=== PATIENT | female | born 1980 | race Caucasian/White ===

== ENCOUNTER 2017-09-23 12:35 | Emergency (ER) | payer OTHER ==
--- NOTE | 2017-09-23 13:09 | ED Physician Documentation ---
PD HPI ABD PAIN - Stated complaint Stated Complaint: ABD PX - Chief complaint Chief Complaint: Abd Pain - History obtained from History obtained from: Patient - History of Present Illness Timing - onset: Other (She has sharp LUQ/epigastric pain since yesterday. Bloated x4 weeks, intermittent but usually daily. Appx 3 yrs ago dx umbilical hernia and dx diastasis rectus. +normal BMS. 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 Review of Systems Ten Systems: 10 systems reviewed and negative Constitutional: reports: Fatigue ("not as bad as mono- I think just because I have 4 kids."). denies: Fever, Chills Nose: denies: Rhinorrhea / runny nose, Congestion Cardiac: denies: Chest pain / pressure, Palpitations Respiratory: denies: Dyspnea, Cough GI: reports: Abdominal Pain, Abdominal Swelling, Nausea. denies: Vomiting, Constipation, Diarrhea, Hematemesis, Bloody / black stool : denies: Dysuria, Frequency PD PAST MEDICAL HISTORY - Past Medical History Past Medical History: No Cardiovascular: None Respiratory: None Neuro: None Endocrine/Autoimmune: None GI: None NET DEVELOPER CONTRACT: None : None HEENT: None Psych: None Musculoskeletal: None Derm: None - Past Surgical History /NET DEVELOPER CONTRACT: section HEENT: Tonsil/Adenoidectomy - Present Medications Home Medications: Ambulatory Orders Medication Instructions Recorded Confirmed No Known Home Medications [No 09/23/17 09/23/17 Known Home Medications] - Allergies Allergies/Adverse Reactions: Allergies Allergy/AdvReac Type Severity Reaction Status Date / Time codeine Allergy Nausea Verified 09/23/17 12:43 - Social History Does the pt smoke?: No Smoking Status: Never smoker Does the pt drink ETOH?: Yes Does the pt have substance abuse?: No - Family History Family history: reports: Non contributory - Immunizations Immunizations are current?: Yes - POLST Patient has POLST: No PD ED PE NORMAL - Vitals Vital signs reviewed: Yes - General General: Alert and oriented X 3, No acute distress - HEENT HEENT: PERRL, EOMI - Neck Neck: Supple, no meningeal sign, No bony TTP - Cardiac Cardiac: RRR, No murmur - Respiratory Respiratory: No respiratory distress, Clear bilaterally - Abdomen Abdomen: Normal bowel sounds, Other (Mild diffuse tenderness, least of which is in the right upper quadrant, I do think I feel an umbilical hernia but without bowel in it.) - Back Back: No CVA TTP, No spinal TTP - Derm Derm: Normal color, Warm and dry - Extremities Extremities: No edema, No calf tenderness / cord - Neuro Neuro: Alert and oriented X 3, Normal speech - Psych Psych: Normal mood, Normal affect Results - Vitals Vitals: Vital Signs - 24 hr 09/23/17 12:38 Temperature 36.6 C Heart Rate 63 Respiratory 16 Rate Blood Pressure 115/60 O2 Saturation 100 - Labs Labs: Laboratory Tests 09/23/17 09/23/17 09/23/17 12:50 12:50 13:28 WBC 5.6 RBC 4.22 Hgb 13.0 Hct 37.5 MCV 88.7 MCH 30.8 MCHC 34.7 RDW 13.1 Plt Count 148 MPV 8.2 Neut # 3.2 Lymph # 1.8 [place] # 0.4 Eos # 0.1 Baso # 0.0 Absolute Nucleated RBC 0.00 Nucleated RBC % 0.0 Sodium Potassium Chloride Carbon Dioxide Anion Gap BUN Creatinine Estimated GFR (MDRD) Glucose Calcium Total Bilirubin AST ALT Alkaline Phosphatase Total Protein Albumin Globulin Albumin/Globulin Ratio Lipase Urine Color YELLOW Urine Clarity CLEAR Urine pH 5.0 Ur Specific [place] <=1.005 <=1.005 Urine Protein NEGATIVE Urine Glucose (UA) NEGATIVE Urine Ketones NEGATIVE Urine Occult Blood NEGATIVE Urine Nitrite NEGATIVE Urine Bilirubin NEGATIVE Urine Urobilinogen 0.2 (NORMAL) Ur Leukocyte Esterase NEGATIVE Ur Microscopic Review NOT INDICATED Urine Culture Comments NOT INDICATED Urine HCG, Qual NEGATIVE 09/23/17 13:28 WBC RBC Hgb Hct MCV MCH MCHC RDW Plt Count MPV Neut # Lymph # [place] # Eos # Baso # Absolute Nucleated RBC Nucleated RBC % Sodium 138 Potassium 3.7 Chloride 101 Carbon Dioxide 30 Anion Gap 7.0 BUN 15 Creatinine 0.5 Estimated GFR (MDRD) 138 Glucose 95 Calcium 9.2 Total Bilirubin 0.6 AST 20 ALT 19 Alkaline Phosphatase 44 Total Protein 7.0 Albumin 4.4 Globulin 2.6 Albumin/Globulin Ratio 1.7 Lipase 30 Urine Color Urine Clarity Urine pH Ur Specific [place] Urine Protein Urine Glucose (UA) Urine Ketones Urine Occult Blood Urine Nitrite Urine Bilirubin Urine Urobilinogen Ur Leukocyte Esterase Ur Microscopic Review Urine Culture Comments Urine HCG, Qual - Rads (name of study) CT A/P with contrast Radiology: EMP read contemporaneously (normal except lg stool load.) PD MEDICAL DECISION MAKING - ED course ED course: 37-year-old woman with 4 weeks of bloating and now sharp pains for a day although pain-free here and declined pain medication. No help with GI cocktail. Abdomen was pretty benign and CT imaging shows only constipation with normal labs. Follow-up for evaluation for upper and lower endoscopy was advised if a laxative is unhelpful and also consideration for outpatient thyroid testing. Departure - Departure Disposition: Home, Self Care Clinical Impression: Abdominal pain Qualifiers: Abdominal location: generalized Qualified Code(s): R10.84 - Generalized abdominal pain Constipation Qualifiers: Constipation type: slow transit constipation Qualified Code(s): K59.01 - Slow transit constipation Condition: Good Record reviewed to determine appropriate education?: Yes Instructions: Abdominal Pain, ED Constipation Comments: At the drugstore, get a bottle of magnesium citrate which is available over-the- counter and use it as per package instructions. Return if worse. Follow-up with your doctor and discuss follow-up testing such as upper and lower endoscopy and thyroid testing.
[2017-09-23 13:17] LABS: BILIRUBIN,URINE NEGATIVE (NEGATIVE); GLUCOSE, URINE (UA) NEGATIVE (NEGATIVE); KETONES,URINE (UA) NEGATIVE (NEGATIVE); LEUKOCYTE ESTERASE, URINE NEGATIVE (NEGATIVE); NITRITE,URINE NEGATIVE (NEGATIVE); OCCULT BLOOD,URINE NEGATIVE (NEGATIVE); PROTEIN,URINE NEGATIVE (NEGATIVE); UROBILINOGEN,URINE 0.2 (NORMAL) E.U./dL (NORMAL)
[2017-09-23] MEDS ORDERED: LIDOCAINE VISCOUS 2% 15 ML UDC MM STA (13:19)
[2017-09-23] MEDS ORDERED: MAG HYDROX/AL HYDROX/SIMETH 30 ML UDC PO STA (13:19)
[2017-09-23 13:22] LABS: CLARITY,URINE CLEAR (CLEAR)
[2017-09-23 13:24] LABS: HCG UR QUAL NEGATIVE
[2017-09-23] MEDS ORDERED: IOPAMIDOL-300 100 ML VIAL ONE (13:31)
[2017-09-23] MEDS ORDERED: IOPAMIDOL-300 50 ML VIAL ONE (13:31)
[2017-09-23 13:37] LABS: BASOPHILS % (AUTO) 0.4 %; EOSINOPHILS # (AUTO) 0.1 10^3/uL (0.0-0.7); EOSINOPHILS % (AUTO) 2.6 %; LYMPHOCYTES # (AUTO) 1.8 10^3/uL (1.5-3.5); LYMPHOCYTES % (AUTO) 32.5 %; MEAN CORPUSCULAR HEMOGLOBIN 30.8 pg (27.0-31.0); MEAN CORPUSCULAR HGB CONC 34.7 g/dL (32.0-36.0); MEAN CORPUSCULAR VOLUME 88.7 fL (81.0-99.0); MEAN PLATELET VOLUME 8.2 fL (7.9-10.8); MONOCYTES # (AUTO) 0.4 10^3/uL (0.0-1.0); MONOCYTES % (AUTO) 6.7 %; NEUTROPHILS # (AUTO) 3.2 10^3/uL (1.5-6.6); NEUTROPHILS % (AUTO) 57.8 %; PLT - PLATELET COUNT 148 10^3/uL (130-450); RED BLOOD COUNT 4.22 10^6/uL (4.20-5.40); RED CELL DISTRIBUTION WIDTH 13.1 % (12.0-15.0); WHITE BLOOD COUNT 5.6 x10^3/uL (4.8-10.8)
[2017-09-23 13:51] LABS: ALBUMIN 4.4 g/dL (3.2-5.5); ALBUMIN/GLOBULIN RATIO 1.7 (1.0-2.2); BILIRUBIN,TOTAL 0.6 mg/dL (0.2-1.0); CALCIUM 9.2 mg/dL (8.5-10.3); CREATININE 0.5 mg/dL (0.4-1.0)
[2017-09-23] MEDS ORDERED: IOPAMIDOL-300 50 ML VIAL PO ONE (14:42)
[2017-09-23] MEDS ORDERED: IOPAMIDOL-300 100 ML VIAL IVP ONE (14:42)
--- NOTE | 2017-09-23 15:09 | CT Preliminary Report ---
Exam: CT ABDOMEN/PELVIS W/ IMPRESSION: 1. No bowel obstruction. No acute focal inflammatory change identified in the abdomen or pelvis. Appe ndix appears unremarkable. Moderate amount of stool throughout much of the colon. 2. Gallbladder is contracted, which limits assessment. No biliary ductal dilation identified. [facility] SITE ID: [id number]
--- NOTE | 2017-09-23 15:10 | CT Report ---
EXAM: CT ABDOMEN AND PELVIS EXAM DATE: 09/23/2017 02:33 PM. CLINICAL HISTORY: IV and PO, diffuse loy upper abd pain. COMPARISONS: None. TECHNIQUE: Routine helical CT imaging was performed through the abdomen and pelvis. IV contrast: ISOV UE 300 100mL. Enteric contrast: Yes. Reconstructions: Coronal and sagittal. In accordance with CT protocol optimization, one or more of the following dose reduction techniques w ere utilized for this exam: automated exposure control, adjustment of mA and/or KV based on patient s ize, or use of iterative reconstructive technique. FINDINGS: Lung Bases: Unremarkable. Liver: Normal. No masses. Gallbladder/Bile Ducts: Contracted gallbladder. No biliary ductal dilation identified. Spleen: Normal. Pancreas: Normal. Adrenal Glands: Normal. Kidneys: Normal. No masses or hydronephrosis. Peritoneal Cavity/Bowel: No bowel obstruction. Moderate amount of stool throughout the colon. No acut e focal inflammatory change identified. No discrete collection. No bulky adenopathy. No free air. No free fluid. Appendix appears unremarkable. Pelvic Organs: Urinary bladder is incompletely distended, although appears to be unremarkable. Uterus and adnexal structures are limited in assessment by CT, although appear grossly unremarkable. Vasculature: No aneurysms or other significant abnormality. Bones: No significant abnormality. Other: None. IMPRESSION: 1. No bowel obstruction. No acute focal inflammatory change identified in the abdomen or pelvis. Appe ndix appears unremarkable. Moderate amount of stool throughout much of the colon. 2. Gallbladder is contracted, which limits assessment. No biliary ductal dilation identified. [facility] Referring Provider Line: [phone] SITE ID: [id number]
[2017-09-23 15:31] VITALS: BP 118/62
== END 2017-09-23 15:30 | disposition home or self-care (01) ==
LOC: ED 12:35
DX: R10.84 Generalized abdominal pain (principal); K59.01 Slow transit constipation
CPT/HCPCS: 36415; 74177; 80053; 81003; 81025; 83690; 85025; 99283; 99284; A9270; Q9967; 81001; 87086